=== PATIENT | male | born 2000 | race American Indian/Alaskan Native ===

== ENCOUNTER 2021-03-11 20:43 | Emergency (ER) | payer SELFPAY ==
--- NOTE | 2021-03-11 21:21 | XRay Report ---
RIGHT HAND 3 VIEW(S) INDICATION / CLINICAL INFORMATION: INJURY . POSSIBLE BROKEN RIGHT HAND. PATIENT SLAMMED IT IN THE DOO R. COMPARISON: None available. FINDINGS: BONES / JOINT(S): Mildly displaced acute fractures of the bases of the middle, ring, and little finge r metacarpals. 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 No sig nificant arthritis. SOFT TISSUES: Moderate soft tissue swelling on the dorsum of the hand. ADDITIONAL FINDINGS: None. IMPRESSION: 1. Acute fractures of the bases of the middle, ring, and little finger metacarpals. 2. Chronic, nonunited scaphoid waist fracture. Signer Name: Desire Mcbride MD Signed: 03/11/2021 9:17 PM Workstation Name: [id number]
[2021-03-12] MEDS ORDERED: SODIUM CHLORIDE 0.9% 1000 ML 1,000 ML IV ONE (00:14)
[2021-03-12] MEDS ORDERED: ONDANSETRON 4 MG/2 ML INJ IV ONE (00:14)
[2021-03-12] MEDS ORDERED: FAMOTIDINE 20 MG/2 ML INJ IV ONE (00:14)
[2021-03-12] MEDS ORDERED: KETOROLAC 30 MG/1 ML INJ IV ONE (00:14)
[2021-03-12 02:04] LABS: Basophils % (Auto) 0.2 % (0.0-1.8); Hematocrit 42.2 % (35.5-45.6); Hemoglobin 13.9 gm/dl (11.8-15.2); Lymphocytes # (Auto) 0.8 K/mm3 (1.2-5.4); Mean Corpuscular HGB Conc 33 % (32-34); Mean Corpuscular Volume 90 fl (84-94); Monocytes # (Auto) 0.3 K/mm3 (0.0-0.8); Monocytes % (Auto) 3.7 % (0.0-7.3); Platelet Count 239 K/mm3 (140-440); Red Blood Count 4.68 M/mm3 (3.65-5.03)
[2021-03-12 02:26] LABS: Alanine Aminotransferase 10 units/L (7-56); Albumin 4.4 g/dL (3.9-5); BUN/Creatinine Ratio 21; Blood Urea Nitrogen 17 mg/dL (9-20); Calcium 9.1 mg/dL (8.4-10.2); Hemolysis Index 13
[2021-03-12] MEDS ORDERED: ONDANSETRON 4 MG ODT TAB PO ONE (03:12)
[2021-03-12] MEDS ORDERED: HYDROcodone/ACETAMINOPHEN 5-325 MG TAB PO ONE (03:12)
--- NOTE | 2021-03-12 03:17 | Emergency Department Report ---
ED N/V/D HPI - General Chief complaint: Extremity Injury, Upper Stated complaint: RIGHT HAND INJURY Source: patient Mode of arrival: Ambulatory Limitations: No Limitations - History of Present Illness Initial comments: Patient is a 20-year-old -[place] male with no past medical history who presented to the ED with complaint of acute onset persistent intermittent nausea and vomiting with diarrhea and mild epigastric pain for the last 18 hours. Patient states that he has not been able to keep anything down since the onset of the symptoms. Patient states that he also went to work and accidentally a double shot onto his right hand causing significant pain and swelling and that he has not been able to perform any active range of motion of the right hand because of worsening pain and swelling. Patient denies dizziness, syncope, fever, chills, chest pain, shortness of breath, sore throat, nasal and sinus congestion, lightheadedness, numbness and tingling or weakness of right hand or fall or neck pain. MD complaint: nausea, vomiting, diarrhea, abdominal pain, other (Right hand pain and swelling) -: Sudden, hour(s) (18) Description of Vomiting: food contents, watery, bilious Description of Diarrhea: water Associated Abdominal Pain: Yes (epigastric pain) Location: diffuse Radiation: none Severity: severe Pain Scale: 8 Quality: aching, dull Consistency: intermittent Improves with: none Worsens with: eating, vomiting Context: possible food poisoning, trauma (right hand) Associated Symptoms: denies other symptoms, myalgias, headaches, loss of appetite, malaise, nausea/vomiting, weakness. denies: chest pain, cough, diaphoresis, fever/chills, rash, dysuria, shortness of breath, syncope, other - Related Data Previous Rx's Medication Instructions Recorded Last Taken Type Famotidine [Pepcid] 20 mg PO BID #30 tablet 03/12/21 Unknown Rx HYDROcodone/APAP 5-325 [Carmel 1 each PO Q6HR PRN #12 tablet 03/12/21 Unknown Rx 5/325] Ibuprofen [Motrin] 800 mg PO Q8HR PRN #30 tablet 03/12/21 Unknown Rx Ondansetron [Zofran Odt] 4 mg PO Q6HR PRN #20 tab.rapdis 03/12/21 Unknown Rx Allergies Allergy/AdvReac Type Severity Reaction Status Date / Time No Known Allergies Allergy Unverified 01/05/21 16:14 ED Review of Systems ROS: Stated complaint: RIGHT HAND INJURY Other details as noted in HPI Constitutional: denies: chills, fever Eyes: denies: eye pain, eye discharge, vision change ENT: denies: ear pain, throat pain Respiratory: denies: cough, shortness of breath, wheezing Cardiovascular: denies: chest pain, palpitations Endocrine: no symptoms reported Gastrointestinal: abdominal pain, nausea, vomiting, diarrhea Genitourinary: denies: urgency, dysuria Musculoskeletal: arthralgia (right hand pain and swelling), myalgia. denies: back pain, joint swelling Skin: denies: rash, lesions Neurological: headache. denies: weakness, paresthesias Psychiatric: denies: anxiety, depression Hematological/Lymphatic: denies: easy bleeding, easy bruising ED Past Medical Hx - Past Medical History Previous Medical History?: No - Surgical History Past Surgical History?: Yes Additional Surgical History: PANCREAS /ARM - Medications Home Medications: Home Medications Medication Instructions Recorded Confirmed Last Taken Type Famotidine [Pepcid] 20 mg PO BID #30 tablet 03/12/21 Unknown Rx HYDROcodone/APAP 5-325 [Carmel 1 each PO Q6HR PRN #12 tablet 03/12/21 Unknown Rx 5/325] Ibuprofen [Motrin] 800 mg PO Q8HR PRN #30 tablet 03/12/21 Unknown Rx Ondansetron [Zofran Odt] 4 mg PO Q6HR PRN #20 tab.rapdis 03/12/21 Unknown Rx ED Physical Exam - General Limitations: No Limitations General appearance: alert, in no apparent distress - Head Head exam: Present: atraumatic, normocephalic, normal inspection - Eye Eye exam: Present: normal appearance, PERRL, EOMI Pupils: Present: normal accommodation - ENT ENT exam: Present: normal exam, normal orophraynx, mucous membranes moist, TM's normal bilaterally, normal external ear exam - Neck Neck exam: Present: normal inspection, full ROM. Absent: tenderness - Respiratory Respiratory exam: Present: normal lung sounds bilaterally. Absent: respiratory distress, wheezes, rales, rhonchi, chest wall tenderness, accessory muscle use, decreased breath sounds, prolonged expiratory - Cardiovascular Cardiovascular Exam: Present: regular rate, normal rhythm, normal heart sounds. Absent: systolic murmur, diastolic murmur, rubs, gallop - GI/Abdominal GI/Abdominal exam: Present: soft, normal bowel sounds. Absent: tenderness, guarding, rigid, hyperactive bowel sounds, hypoactive bowel sounds, organom egaly, pulsatile mass - Extremities Exam Extremities exam: Present: normal inspection, tenderness (Palpable right hand tenderness and swelling with limited range of motion due to pain), normal capillary refill, joint swelling (Right hand swelling). Absent: full ROM (Limited range of motion of right hand due to pain), pedal edema, calf tenderness - Back Exam Back exam: Present: normal inspection, full ROM. Absent: tenderness, CVA tenderness (R), CVA tenderness (L), muscle spasm, paraspinal tenderness - Neurological Exam Neurological exam: Present: alert, oriented X3, CN II-XII intact, normal gait, reflexes normal - Psychiatric Psychiatric exam: Present: normal affect, normal mood - Skin Skin exam: Present: warm, dry, intact, normal color. Absent: rash ED Course Vital Signs 03/11/21 20:47 Temperature 98.6 F Pulse Rate 67 Respiratory 18 Rate Blood Pressure 141/78 O2 Sat by Pulse 100 Oximetry ED Medical Decision Making - Lab Data Result diagrams: 03/12/21 01:47 03/12/21 01:47 - Radiology Data Radiology results: report reviewed, image reviewed [address] [address] XRay Report Signed Patient: MARILIN VILLEGAS MR#: [id number] : 2000 Acct:[id number] Age/Sex: 20 / M ADM Date: 03/11/21 Loc: ED Attending Dr: Ordering Physician: AYE GALICIA MD Date of Service: 03/11/21 Procedure(s): XR hand 3+V RT Accession Number(s): [id number] cc: ED MD FRIDA Fluoro Time In Minutes: RIGHT HAND 3 VIEW(S) INDICATION / CLINICAL INFORMATION: INJURY . POSSIBLE BROKEN RIGHT HAND. PATIENT SLAMMED IT IN THE DOOR. COMPARISON: None available. FINDINGS: BONES / JOINT(S): Mildly displaced acute fractures of the bases of the middle, ring, and little finger metacarpals. 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 No significant arthritis. SOFT TISSUES: Moderate soft tissue swelling on the dorsum of the hand. ADDITIONAL FINDINGS: None. IMPRESSION: 1. Acute fractures of the bases of the middle, ring, and little finger metacarpals. 2. Chronic, nonunited scaphoid waist fracture. Signer Name: Desire Mcbride MD Signed: 03/11/2021 9:17 PM Workstation Name: [id number] Transcribed By: DT Dictated By: Danilo Mcbride MD Electronically Authenticated By: Danilo Mcbride MD Signed Date/Time: 03/11/212116 DD/ 14 TD/TT: - Medical Decision Making This is a 20-year-old -[place] male with no past medical history who presented to the ED with complaint of acute onset persistent intermittent nausea and vomiting with diarrhea and mild epigastric pain for the last 18 hours. Patient states that he has not been able to keep anything down since the onset of the symptoms. Patient states that he also went to work and accidentally a double shot onto his right hand causing significant pain and swelling and that he has not been able to perform any active range of motion of the right hand because of worsening pain and swelling. In the ED, patient is alert and oriented x3 and is not in any distress. Patient is hemodynamically stable. Lab test results were reviewed and are all nonactionable. Patient was treated for pain in the ED and also given antiemetics, antacids and normal saline 1 L IV bolus x1. Right hand x-ray showed acute fractures of the bases of the middle, ring, and little finger metacarpals. It also showed chronic, nonunited scaphoid waist fracture. Right hand was then splinted with sugar tong splint. On reevaluation, patient's pain is well controlled with medications. Patient has not had any nausea or vomiting in the ED and passed oral fluid challenge in the ED. Patient is neurovascularly intact on distal right hand after splint application. Patient was therefore discharged home on pain medications, antiemetics, antacids and also given a referral to the orthopedic surgeon Dr. Matthews for follow-up. Patient was advised to contact Dr. Matthews's office first in the morning on s March 15, 2021 to schedule a follow-up appointment. Patient was advised to return to the ED immediately if symptoms get worse. - Differential Diagnosis hand fracture; hand ocntusion; gastroenteritis; GERD; Covid-19 Critical care attestation.: If time is entered above; I have spent that time in minutes in the direct care of this critically ill patient, excluding procedure time. ED Disposition Clinical Impression: Nausea and vomiting in adult patient, Viral gastroenteritis Fracture of base of fifth metacarpal bone of right hand Qualifiers: Encounter type: initial encounter Fracture type: closed Fracture alignment: nondisplaced Qualified Code(s): S62.346A - Nondisplaced fracture of base of fifth metacarpal bone, right hand, initial encounter for closed fracture Fracture of base of third metacarpal bone of right hand Qualifiers: Encounter type: initial encounter Fracture type: closed Fracture alignment: nondisplaced Qualified Code(s): S62.342A - Nondisplaced fracture of base of third metacarpal bone, right hand, initial encounter for closed fracture Fracture of base of fourth metacarpal bone of right hand Qualifiers: Encounter type: initial encounter Fracture type: closed Fracture alignment: nondisplaced Qualified Code(s): S62.344A - Nondisplaced fracture of base of fourth metacarpal bone, right hand, initial encounter for closed fracture Disposition: 01 HOME / SELF CARE / HOMELESS Is pt being admited?: No Does the pt Need Aspirin: No Condition: Stable Instructions: Viral Gastroenteritis, Adult, [id number], Nausea and Vomiting, Adult, [id number], Metacarpal Fracture, [id number] Additional Instructions: Right hand x-ray showed nondisplaced fractures of the bases of the third, fourth and fifth metacarpals of the right hand. All lab test results were reviewed and are all nonactionable. Therefore take pain medication and nausea medicine as needed with food, drink plenty of fluids, follow-up with the orthopedic surgeon Zahra Espinoza for further evaluation. Return to the ED immediately if symptoms get worse. Prescriptions: Ibuprofen [Motrin] 800 mg PO Q8HR PRN #30 tablet PRN Reason: Pain , Severe (7-10) HYDROcodone/APAP 5-325 [Carmel 5/325] 1 each PO Q6HR PRN #12 tablet PRN Reason: Pain Famotidine [Pepcid] 20 mg PO BID #30 tablet Ondansetron [Zofran Odt] 4 mg PO Q6HR PRN #20 tab.rapdis PRN Reason: Nausea And Vomiting Referrals: SHAINA MATTHEWS MD [Staff Physician] - 3-5 Days Forms: Work/School Release Form(ED) Time of Disposition: 03:25 Print Language: [place]
[2021-03-12 06:11] VITALS: BP 130/56
== END 2021-03-12 06:11 | disposition home or self-care (01) ==
LOC: ED 20:43
DX: S62.312A Displaced fracture of base of third metacarpal bone, right hand, initial encounter for closed fracture (principal); S62.314A Displaced fracture of base of fourth metacarpal bone, right hand, initial encounter for closed fracture; S62.316A Displaced fracture of base of fifth metacarpal bone, right hand, initial encounter for closed fracture; Z79.899 Other long term (current) drug therapy; R11.2 Nausea with vomiting, unspecified; R19.7 Diarrhea, unspecified; R10.13 Epigastric pain; W22.8XXA Striking against or struck by other objects, initial encounter; Y93.89 Activity, other specified; Y92.89 Other specified places as the place of occurrence of the external cause; Y99.0 Civilian activity done for income or pay
CPT/HCPCS: 29125; 36415; 73130; 80053; 83690; 85025; 96361; 96374; 96375; 99284; J1885; J2405; J3490; J7030; Q0162